=== PATIENT | male | born 1980 | race Hispanic/Latino ===

== ENCOUNTER 2021-05-22 14:40 | Emergency (ER) | payer OTHER ==
[2021-05-22] MEDS ORDERED: Lidocaine 1% w/Epinephrine 1:100K 20 ML VIAL ONE (16:23)
[2021-05-22] MEDS ORDERED: Boostrix 0.5 ML (Tdap) VIAL ONE (16:36)
== END 2021-05-22 18:40 | disposition home or self-care (01) ==
LOC: ERS 14:40
DX: S01.411A Laceration without foreign body of right cheek and temporomandibular area, initial encounter (principal); S01.311A Laceration without foreign body of right ear, initial encounter; V43.62XA Car passenger injured in collision with other type car in traffic accident, initial encounter
CPT/HCPCS: 12011; 70450; 71045; 72125; 72170; 90471; 90715; G0390